=== PATIENT | female | born 1960 | race Caucasian/White ===

== ENCOUNTER 2016-09-17 12:49 | Emergency (ER) ==
[2016-09-17 13:09] LABS: MANUAL DIFF NEEDED? NO
[2016-09-17 13:17] LABS: BASO% 0.2 % (0.0-0.8); EOS# 0.27 X1000 (0.0-0.7); EOS% 2.5 % (0.0-10.0); HEMATOCRIT 36.5 % (37.0-47.0); HEMOGLOBIN 12.1 g/dL (12.0-16.0); LYMPH# 2.38 X1000 (1.2-3.4); LYMPH% 22.2 % (20.5-51.1); MCH 30.8 PG (27-31); MCHC 33.2 g/dL (33-37); MCV 92.9 FL (81-99); MONO# 1.02 X1000 (0.11-0.59); MONO% 9.5 % (1.7-9.3); MPV 11.1 FL (7.4-10.4); NEUT% 65.6 % (42.2-75.2); PLT 259 X1000 (130-400); RBC 3.93 XMIL (4.2-5.4)
[2016-09-17 13:43] LABS: ALBUMIN 3.7 g/dL (3.5-5.0); CALCIUM 8.8 mg/dL (8.8-10.2); POTASSIUM 3.6 mmol/L (3.5-5.1); TOTAL BILIRUBIN 0.7 mg/dL (0.20-1.00); TOTAL PROTEIN 6.9 g/dL (6.3-8.3)
[2016-09-17 14:05] LABS: AMYLASE 60 U/L (20-200); LIPASE 32 U/L (13-60)
[2016-09-17 14:34] LABS: URINE MICRO REVIEW NEEDED? NO; URINE SOURCE CLEAN CATCH
--- NOTE | 2016-09-17 14:35 | PROVIDER DOCUMENTATION ---
HPI-General Adult - General Source: patient - History of Present Illness -Gen Adult Nature of Presenting Problems: Reports to er with cc of possible staph infection. Pt reports that years ago she contracted staff infection after having a gallbladder surgery in [facility] reports since then she has contracted staph 4-5 times in past 15 years. states last episode 4-5 days ago she developed and open wound to midline lower abd went to DR.Mahesh was given rocephin shot and Levaquin pills reports took 3 levaquin pills and stopped them due to it making her sick. Pt denies abd pain,v, f,d. Location of Pain/Injury: reports: abdomen Quality of Pain: reports: aching Severity: reports: moderate Onset/Duration: reports: 4 days ago Timing: reports: still present Similar Symptoms Previously?: Yes Recently seen or treated by another doctor?: Yes <Nivia Mendoza - Last Filed: 09/17/16 15:23> <Ahsan Edwards - Last Filed: 09/17/16 15:49> - General Chief Complaint: General Adult Stated Complaint: infection Time Seen by Provider: 09/17/16 13:34 Allergies/Adverse Reactions: Patient Allergies Allergy/AdvReac Type Severity Reaction Status Date / Time ceftriaxone sodium * AdvReac NAUSEA/VOMI Verified 09/17/16 15:06 [From Rocephin] TING sulfamethoxazole AdvReac NAUSEA/VOMI Verified 09/17/16 15:06 [From Bactrim] TING trimethoprim [From Bactrim] AdvReac NAUSEA/VOMI Verified 09/17/16 15:06 TING Home Medications: Home Medication List Medication Instructions Recorded Confirmed Last Taken Type Carisoprodol 350 mg PO HS PRN 10/27/15 09/17/16 Unknown History Clonazepam 0.5 mg PO DAILY 10/27/15 09/17/16 10/27/15 11:00 History 0.5 LISINOpril/HCTZ [Prinzide 1 each PO DAILY 10/27/15 09/17/16 10/27/15 11:00 History 20/12.5MG] Pravastatin Sodium 20 mg PO DAILY 10/27/15 09/17/16 10/26/15 21:00 History Ranitidine [Zantac] 150 mg PO BID 10/27/15 09/17/16 10/27/15 09:00 History 150 Doxycycline Hyclate 100 mg PO BID #20 capsule 09/17/16 Unknown Rx Mupirocin Ointment [Bactroban 1 applicatn TOP TID #1 tube 09/17/16 Unknown Rx Ointment] Review of Systems - Adult - REVIEW OF SYSTEMS - ADULT Constitutional: denies: chills, fever, fatique Eyes: reports: no symptoms reported Ears, Nose, Mouth & Throat: denies: ear pain, sinus problem, throat pain Cardiovascular: reports: no symptoms reported Respiratory: reports: no symptoms reported Gastrointestinal: reports: no symptoms reported Genitourinary: reports: no symptoms reported Musculoskeletal: reports: no symptoms reported Integumentary: reports: see HPI, skin sores/ulcer. denies: mole changes, nail changes Neurological: reports: no symptoms reported Psychiatric: denies: anxiety, insomnia, panic attacks Endocrine: reports: no symptoms reported Hematologic/Lymphatic: reports: no symptoms reported Allergic/Immunologic: reports: no symptoms reported All Other Systems: Reviewed and Negative <Nivia Mendoza - Last Filed: 09/17/16 15:23> Past History - Adult - PAST MEDICAL HISTORY-ADULT Review of Records: reports: Nursing Assessment Review, Medications Reviewed Major Childhood Illnesses: reports: denies history Cardiovascular: reports: HTN, hyperlipidemia Respiratory: reports: denies history Gastrointestinal: reports: denies history Obstetrical/Gynecological: reports: denies history Genitourinary: reports: denies history Musculoskeletal: reports: arthritis, other (scoliosis) Neurological: reports: denies history Psychiatric: reports: denies history Endocrine/Immune: reports: denies history Other Conditions: reports: denies history - PRIOR SURGERIES/PROCEDURES Surgical/Procedure History: reports: cholecystectomy, tonsillectomy - PRIOR HOSPITALIZATIONS Prior Hospitalizations: reports: for other non-related - IMMUNIZATION STATUS Childhood Immunizations: See Nurse Assessment Flu Vaccine: See Nurse Assessment - FAMILY HISTORY Family History: reviewed, not pertinent - SOCIAL HISTORY Smoking: less than 1 pack/day Provider spent 3-5 mins advising pt. on dangers of tobacco.: Discussed manners to quit use, and f/u contacts for add'l counseling. Substance Use: none/never <Nivia Mendoza - Last Filed: 09/17/16 15:23> Physical Exam-General - PHYSICAL EXAM-ADULT Initial Vital Signs Reviewed: Yes - CONSTITUTIONAL General Appearance: appears well, alert, no apparent distress - EYES Eyes: PERRL/EOMI - HEAD, EARS, NOSE, MOUTH & THROAT HENMT: moist mucous membranes, TMs normal, pharynx normal - NECK Neck: non-tender, full range of motion, supple - RESPIRATORY Respiratory: chest non-tender, lungs clear, normal breath sounds - CARDIOVASCULAR Cardiovascular: regular rate, rhythm - GASTROINTESTINAL (ABDOMEN) Abdominal Exam: normal bowel sounds, non tender, soft, no organomegaly, no pulsatile mass, other (midline lower abd open wound small in nature oozing pink/ white discharge with large area of redness around infection site.) - MUSCULOSKELETAL Back Exam: normal inspection, no CVA tenderness, no vertebral tenderness Extremity: normal range of motion, non-tender, normal gait - SKIN Integumentary: normal color, normal turgor, warm/dry - PSYCHIATRIC Psych/Mental Status: normal mood/affect, normal thought content, normal thought process, oriented x 3 <Nivia Mendoza - Last Filed: 09/17/16 15:23> Progress - PLAN OF CARE/RESULTS Progress/Plan/Lab Results: Orders Category Date Time Status Saline Loc DIRECTED Care 09/17/16 13:37 Active NPO Diet 09/17/16 13:37 Active AMYLASE [CHEM] Stat Lab 09/17/16 13:00 Completed CBC WITH ELECTRONIC DIFF [HEME] Stat Lab 09/17/16 13:00 Completed CMP [COMPREHENSIVE METABOLIC PANEL] [CHEM] Stat Lab 09/17/16 13:00 Completed LIPASE [CHEM] Stat Lab 09/17/16 13:00 Completed URINALYSIS W/POSS RFLX CULT [URINALYSIS] Stat Lab 09/17/16 14:24 Results Vital Signs - 24 hr 09/17/16 12:53 Temperature 97.6 F Pulse Rate 68 Respiratory 20 Rate Blood Pressure 133/104 O2 Sat by Pulse 100 Oximetry Laboratory Tests 09/17/16 09/17/16 09/17/16 13:00 13:00 13:00 WBC 10.73 RBC 3.93 L Hgb 12.1 Hct 36.5 L MCV 92.9 MCH 30.8 MCHC 33.2 RDW Std Deviation 12.6 Plt Count 259 MPV 11.1 H Neut % (Auto) 65.6 Lymph % (Auto) 22.2 [place] % (Auto) 9.5 H Eos % (Auto) 2.5 Baso % (Auto) 0.2 Neut # (Auto) 7.04 H Lymph # (Auto) 2.38 [place] # (Auto) 1.02 H Eos # (Auto) 0.27 Baso # (Auto) 0.02 Sodium 134 L Potassium 3.6 Chloride 98 Carbon Dioxide 21 L Anion Gap 15 BUN 16 Creatinine 1.1 H Estimated GFR/1.73 m2 51 BUN/Creatinine Ratio 15 Glucose 91 Calculated Osmolality 269 Calcium 8.8 Total Bilirubin 0.70 AST 14 ALT 16 Alkaline Phosphatase 56 Total Protein 6.9 Albumin 3.7 Globulin 3.2 Albumin/Globulin Ratio 1.2 Amylase 60 Lipase 32 Urine Source Urine Color Urine Turbidity Urine pH Ur Specific [place] Urine Protein Ur Glucose (Stick) Ur Ketones (Stick) Urine Blood Urine Nitrite Urine Bilirubin Urobilinogen Dipstick Urine Leukocytes Urine WBC (Auto) Urine RBC (Auto) U Epithel Cells (Auto) Urine Bacteria (Auto) 09/17/16 14:24 WBC RBC Hgb Hct MCV MCH MCHC RDW Std Deviation Plt Count MPV Neut % (Auto) Lymph % (Auto) [place] % (Auto) Eos % (Auto) Baso % (Auto) Neut # (Auto) Lymph # (Auto) [place] # (Auto) Eos # (Auto) Baso # (Auto) Sodium Potassium Chloride Carbon Dioxide Anion Gap BUN Creatinine Estimated GFR/1.73 m2 BUN/Creatinine Ratio Glucose Calculated Osmolality Calcium Total Bilirubin AST ALT Alkaline Phosphatase Total Protein Albumin Globulin Albumin/Globulin Ratio Amylase Lipase Urine Source CLEAN CATCH Urine Color YELLOW Urine Turbidity CLEAR Urine pH 6.0 Ur Specific [place] 1.017 Urine Protein NEGATIVE Ur Glucose (Stick) NEGATIVE Ur Ketones (Stick) NEGATIVE Urine Blood NEGATIVE Urine Nitrite NEGATIVE Urine Bilirubin NEGATIVE Urobilinogen Dipstick NORMAL Urine Leukocytes TRACE A Urine WBC (Auto) <10 Urine RBC (Auto) <10 U Epithel Cells (Auto) <10 Urine Bacteria (Auto) NEGATIVE <Nivia Mendoza - Last Filed: 09/17/16 15:23> - PLAN OF CARE/RESULTS Progress/Plan/Lab Results: Laboratory Results - last 24 hr 09/17/16 09/17/16 09/17/16 13:00 13:00 13:00 WBC 10.73 RBC 3.93 L Hgb 12.1 Hct 36.5 L MCV 92.9 MCH 30.8 MCHC 33.2 RDW Std Deviation 12.6 Plt Count 259 MPV 11.1 H Neut % (Auto) 65.6 Lymph % (Auto) 22.2 [place] % (Auto) 9.5 H Eos % (Auto) 2.5 Baso % (Auto) 0.2 Neut # (Auto) 7.04 H Lymph # (Auto) 2.38 [place] # (Auto) 1.02 H Eos # (Auto) 0.27 Baso # (Auto) 0.02 Sodium 134 L Potassium 3.6 Chloride 98 Carbon Dioxide 21 L Anion Gap 15 BUN 16 Creatinine 1.1 H Estimated GFR/1.73 m2 51 BUN/Creatinine Ratio 15 Glucose 91 Calculated Osmolality 269 Calcium 8.8 Total Bilirubin 0.70 AST 14 ALT 16 Alkaline Phosphatase 56 Total Protein 6.9 Albumin 3.7 Globulin 3.2 Albumin/Globulin Ratio 1.2 Amylase 60 Lipase 32 Urine Source Urine Color Urine Turbidity Urine pH Ur Specific [place] Urine Protein Ur Glucose (Stick) Ur Ketones (Stick) Urine Blood Urine Nitrite Urine Bilirubin Urobilinogen Dipstick Urine Leukocytes Urine WBC (Auto) Urine RBC (Auto) U Epithel Cells (Auto) Urine Bacteria (Auto) 09/17/16 14:24 WBC RBC Hgb Hct MCV MCH MCHC RDW Std Deviation Plt Count MPV Neut % (Auto) Lymph % (Auto) [place] % (Auto) Eos % (Auto) Baso % (Auto) Neut # (Auto) Lymph # (Auto) [place] # (Auto) Eos # (Auto) Baso # (Auto) Sodium Potassium Chloride Carbon Dioxide Anion Gap BUN Creatinine Estimated GFR/1.73 m2 BUN/Creatinine Ratio Glucose Calculated Osmolality Calcium Total Bilirubin AST ALT Alkaline Phosphatase Total Protein Albumin Globulin Albumin/Globulin Ratio Amylase Lipase Urine Source CLEAN CATCH Urine Color YELLOW Urine Turbidity CLEAR Urine pH 6.0 Ur Specific [place] 1.017 Urine Protein NEGATIVE Ur Glucose (Stick) NEGATIVE Ur Ketones (Stick) NEGATIVE Urine Blood NEGATIVE Urine Nitrite NEGATIVE Urine Bilirubin NEGATIVE Urobilinogen Dipstick NORMAL Urine Leukocytes TRACE A Urine WBC (Auto) <10 Urine RBC (Auto) <10 U Epithel Cells (Auto) <10 Urine Bacteria (Auto) NEGATIVE Orders Category Date Time Status Saline Loc DIRECTED Care 09/17/16 13:37 Active NPO Diet 09/17/16 13:37 Active AMYLASE [CHEM] Stat Lab 09/17/16 13:00 Completed BLOOD CULTURE [BLDCUL] Stat Lab 09/17/16 14:55 Results CBC WITH ELECTRONIC DIFF [HEME] Stat Lab 09/17/16 13:00 Completed CMP [COMPREHENSIVE METABOLIC PANEL] [CHEM] Stat Lab 09/17/16 13:00 Completed LIPASE [CHEM] Stat Lab 09/17/16 13:00 Completed URINALYSIS W/POSS RFLX CULT [URINALYSIS] Stat Lab 09/17/16 14:24 Completed WOUND CULTURE INC GRAM STAIN [RM] Routine Lab 09/17/16 14:24 Results Oxycodone/APAP 10 mg/325 mg [Percocet-10] Med 09/17/16 14:44 Discontinued 1 each PO NOW ONE Vancomycin 1 gm/Ns 250 ml Med 09/17/16 14:43 Discontinued IV NOW Orders Category Date Time Status Saline Loc DIRECTED Care 09/17/16 13:37 Active NPO Diet 09/17/16 13:37 Active AMYLASE [CHEM] Stat Lab 09/17/16 13:00 Completed BLOOD CULTURE [BLDCUL] Stat Lab 09/17/16 14:55 Results CBC WITH ELECTRONIC DIFF [HEME] Stat Lab 09/17/16 13:00 Completed CMP [COMPREHENSIVE METABOLIC PANEL] [CHEM] Stat Lab 09/17/16 13:00 Completed LIPASE [CHEM] Stat Lab 09/17/16 13:00 Completed URINALYSIS W/POSS RFLX CULT [URINALYSIS] Stat Lab 09/17/16 14:24 Completed WOUND CULTURE INC GRAM STAIN [RM] Routine Lab 09/17/16 14:24 Results Oxycodone/APAP 10 mg/325 mg [Percocet-10] Med 09/17/16 14:44 Discontinued 1 each PO NOW ONE Vancomycin 1 gm/Ns 250 ml Med 09/17/16 14:43 Discontinued IV NOW <Ahsan Edwards - Last Filed: 09/17/16 15:49> Departure <Nivia Mendoza - Last Filed: 09/17/16 15:23> - Departure Time of Disposition Order: 15:46 Certified Medical Emergency: Emergent <Ahsan Edwards - Last Filed: 09/17/16 15:49> - Departure DIAGNOSIS: Cellulitis Qualifiers: Site of cellulitis: trunk Site of cellulitis of trunk: abdominal wall Qualified Code(s): L03.311 - Cellulitis of abdominal wall Disposition: HOME 01 Condition: Stable Additional Instructions: Return to ER if your symptoms worsen, ot start to have fever, chills. Follow up with regular MD in 2-3 days. Prescriptions: Mupirocin Ointment [Bactroban Ointment] 1 applicatn TOP TID #1 tube Doxycycline Hyclate 100 mg PO BID #20 capsule Referrals: Raad Aragon MD [Primary Care Provider] - Attestation - Scribe Verification/Attestation Scribe:: Nivia Mendoza Acting as Scribe for:: Ahsan Edwards Scribe documention review:: This chart was documented by a scribe and accurately reflects the service the provider performed and the decisions made by the provider. <Nivia Mendoza - Last Filed: 09/17/16 15:23> Physician Attestation
[2016-09-17 14:37] LABS: BILIRUBIN URINE NEGATIVE (NEGATIVE); BLOOD URINE NEGATIVE (NEGATIVE); COLOR YELLOW; GLUCOSE URINE NEGATIVE (NEGATIVE); LEUKOCYTES URINE TRACE (NEGATIVE); NITRITE URINE NEGATIVE (NEGATIVE); PROTEIN URINE NEGATIVE (NEGATIVE); SP GRAVITY URINE 1.017; TURBIDITY URINE CLEAR (CLEAR); UROBILINOGEN URINE NORMAL (NORMAL)
[2016-09-17 14:38] LABS: UR EPITHELIAL CELLS <10 /HPF (<10); URINE BACTERIA NEGATIVE /HPF; URINE CULTURE NEEDED? YES; URINE RBC <10 /HPF (<10); URINE WBC <10 /HPF (<10)
[2016-09-17] MEDS ORDERED: VANCOMYCIN 1 GM/NS 250 ML IV ONE (14:43)
[2016-09-17] MEDS ORDERED: PERCOCET-10 PO ONE (14:44)
[2016-09-17 17:39] VITALS: BP 103/69
== END 2016-09-17 17:38 | disposition home or self-care (01) ==
LOC: ED 12:49
DX: L03.311 Cellulitis of abdominal wall (principal); I10 Essential (primary) hypertension; E78.5 Hyperlipidemia, unspecified; M19.90 Unspecified osteoarthritis, unspecified site; M41.9 Scoliosis, unspecified; F17.210 Nicotine dependence, cigarettes, uncomplicated; Z71.6 Tobacco abuse counseling; Z79.899 Other long term (current) drug therapy
CPT/HCPCS: 80053; 81001; 82150; 83690; 85025; 87040; 87070; 87077; 87088; 87186; J3370